=== PATIENT | female | born 1990 | race African-American/Black ===

== ENCOUNTER 2016-10-31 22:26 | Emergency (ER) | payer MEDICAID, MEDICARE ==
[2016-11-01 02:35] LABS: ABSOLUTE MONOCYTES (AUTO) 0.4 10^3/uL (0.1-1.4); ABSOLUTE NEUT (AUTO) 5.1 10^3/uL (1.7-8.2); BASOPHILS % (AUTO) 0.4 % (0-2); EOSINOPHILS % (AUTO) 0.7 % (0-6); HEMATOCRIT 36.9 % (36.0-47.0); HEMOGLOBIN 11.9 g/dL (12.0-15.5); HGB HCT DIFFERENCE -1.2; LYMPHOCYTES % (AUTO) 14.8 % (13-45); MEAN CORPUSCULAR HEMOGLOBIN 23.7 pg (27.0-33.4); MEAN CORPUSCULAR HGB CONC 32.4 g/dL (32.0-36.0); MEAN CORPUSCULAR VOLUME 73 fl (80-97); MONOCYTES % (AUTO) 5.6 % (3-13); RED BLOOD COUNT 5.03 10^6/uL (3.72-5.28); RED CELL DISTRIBUTION WIDTH 15.7 % (11.5-14.0); SEGMENTED NEUTROPHILS % (AUTO) 78.5 % (42-78); WHITE BLOOD COUNT 6.5 10^3/uL (4.0-10.5)
[2016-11-01 03:15] LABS: APPEARANCE,URINE CLOUDY; BILIRUBIN,URINE NEGATIVE (NEGATIVE); GLUCOSE, URINE NEGATIVE (NEGATIVE); KETONES,URINE NEGATIVE (NEGATIVE); LEUKOCYTE ESTERASE,URINE NEGATIVE (NEGATIVE); NITRITE,URINE NEGATIVE (NEGATIVE); PROTEIN,URINE 100 mg/dL (NEGATIVE); URINE SPECIFIC GRAVITY 1.029
[2016-11-01 03:20] LABS: ALANINE AMINOTRANSFERASE 123 U/L (9-52); ALBUMIN 4.2 g/dL (3.5-5.0); ALKALINE PHOSPHATASE 149 U/L (38-126); ANION GAP 9 (5-19); ASPARTATE AMINO TRANSFERASE 303 U/L (14-36); BILIRUBIN,DIRECT 1.1 mg/dL (0.0-0.4); BILIRUBIN,TOTAL 1.5 mg/dL (0.2-1.3); BLOOD UREA NITROGEN 10 mg/dL (7-20); CALCIUM 9.6 mg/dL (8.4-10.2); CARBON DIOXIDE 28 mmol/L (22-30); CHLORIDE 103 mmol/L (98-107); CREATININE RESULT 0.69 mg/dL (0.52-1.25); GLUCOSE 143 mg/dL (75-110); POTASSIUM 4.3 mmol/L (3.6-5.0); SODIUM 140.4 mmol/L (137-145); TOTAL PROTEIN 7.6 g/dL (6.3-8.2)
[2016-11-01] MEDS ORDERED: MORPHINE SULFATE 10 MG/ML INJ IV ONE ×3 (03:36→13:18)
[2016-11-01] MEDS ORDERED: ONDANSETRON HCL INJ/PF 4 MG/2 ML SDV IV ONE ×2 (05:09→13:18)
--- NOTE | 2016-11-01 06:50 | ER Document Report ---
ED GI/ - General Chief Complaint: Chest Pain Stated Complaint: CHEST PAIN Time Seen by Provider: 11/01/16 02:03 Notes: Patient is a 26-year-old female who presents emergency department complaining of epigastric pain. Patient states that she has been having issues with on and off back pain, right upper quadrant pain and epigastric pain since she had her daughter approximately 4 months ago. Patient states that she is 3 weeks postop from a laparoscopic cholecystectomy done by Dr. Stewart at [facility]. Patient states that she has been doing well up until the past couple of days where she has been having more severe back pain, epigastric pain. Patient admits to nausea without vomiting. States she has been taking Tylenol to help control her pain with minimal improvement. Past medical history significant for hypertension and diabetes Past surgical history significant for 2, cholecystectomy 3 weeks ago , history of appendectomy Social history: Denies any alcohol, tobacco or drug use. Home meds are control, labetalol, metformin, meclizine. Patient is originally from [facility] TRAVEL OUTSIDE OF THE [place] 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, Hx Cholecystectomy - 3 WEEKS DIRECT RESPONSE CONSULTANT - Immunizations Hx Diphtheria, Pertussis, Tetanus Vaccination: Yes Review of Systems - Review of Systems Constitutional: No symptoms reported Cardiovascular: No symptoms reported Respiratory: No symptoms reported Gastrointestinal: See HPI Genitourinary: No symptoms reported -: Yes All other systems reviewed and negative Physical Exam - Vital signs Vitals: Temp Pulse Resp BP Pulse Ox 98.6 F 87 16 143/122 H 100 10/31/16 22:34 10/31/16 22:34 10/31/16 22:34 10/31/16 22:34 10/31/16 22:34 - Notes Notes: PHYSICAL EXAM GENERAL: Alert, interacts well. LUNGS: Clear to auscultation bilaterally, no wheezes, rales, or rhonchi. No respiratory distress. HEART: Regular rate and rhythm. No murmurs, gallops, or rubs. ABDOMEN: Soft, nondistended, minimally tender in the epigastric area non- tympanic to percussion. No guarding, rebound, or rigidity.. Bowel sounds present in all 4 quadrants. EXTREMITIES: Moves all 4 extremities spontaneously. No edema, radial and dorsalis pedis pulses 2/4 bilaterally. No cyanosis. NEUROLOGICAL: Alert and oriented x4. Normal speech. PSYCH: Normal affect, normal mood. SKIN: Warm, dry, normal turgor. No rashes or lesions noted. Course - Re-evaluation Re-evalutation: 11/01/16 02:00 Patient is a 26-year-old female presents emergency department complaining of worsening epigastric and right upper quadrant pain. Patient states that she is 3 weeks postop from a laparoscopic cholecystectomy done at [facility] by Dr. Stewart. Patient states that she is due to follow-up on Saturday. Patient states that she has been trying to take Tylenol for her pain but it has not been working at all so she came in for evaluation. At this time patient is hemodynamically stable, no acute distress and afebrile. Labs do reveal concern for common bile duct stone. Right upper quadrant ultrasound shows evidence of dilated common bile duct at 8.5 mm without any evidence of stone. Lipase is normal at 143. Patient without any evidence of leukocytosis, anemia. She has been resting comfortably and pain well controlled with IV medications. 11/01/2016 7:30 Patient has been accepted to [facility] for transfer for ERCP to evaluate for retained common bile duct stone. Patient will be kept n.p.o. Patient agrees with plan. I signed out this case to day physician assistant child care teacher Nate Oliver - Vital Signs Vital signs: Temp Pulse Resp BP Pulse Ox 98.6 F 87 22 H 151/97 H 100 10/31/16 22:34 10/31/16 22:34 11/01/16 02:46 11/01/16 07:31 11/01/16 07:31 - Laboratory Result Diagrams: 11/01/16 02:27 11/01/16 02:27 Laboratory results interpreted by me: 11/01/16 11/01/16 11/01/16 00:00 02:27 02:27 Hgb 11.9 L MCV 73 L MCH 23.7 L RDW 15.7 H Seg Neutrophils % 78.5 H Glucose 143 H Total Bilirubin 1.5 H Direct Bilirubin 1.1 H AST 303 H ALT 123 H Alkaline Phosphatase 149 H Urine Protein 100 H Urine Urobilinogen 2.0 H Urine Ascorbic Acid 40 H - Diagnostic Test Radiology reviewed: Reports reviewed Discharge - Discharge Clinical Impression: Biliary obstruction Condition: Stable Disposition: [facility]
[2016-11-01 07:40] VITALS: BP 151/97
[2016-11-01] MEDS ORDERED: METOCLOPRAMIDE HCL INJ/PF 10 MG/2 ML SDV IV ONE (08:00)
--- NOTE | 2016-11-01 08:17 | EKG REPORT ---
SEVERITY:- NORMAL ECG - SINUS RHYTHM : Confirmed by: Eduin Holt MD 01-Nov-2016 08:17:13
[2016-11-01] MEDS: NORMAL SALINE 1000 ML 1,000 ML IV PRN ×2 (08:30→11:16)
--- NOTE | 2016-11-01 13:20 | ER Document Report ---
Doctor's Note Notes: 11/01/16 13:19 Transport will be here in about 10 minutes to take the patient to [place]. She is beginning to have some pain again. Her last pain medication was almost 6 hours ago. She will be given another dose of morphine and Zofran which seemed to work well earlier this morning. Otherwise, she is doing well with stable vital signs.
--- NOTE | 2016-11-05 12:10 | RADIOLOGY REPORT (SQ) ---
EXAM DESCRIPTION: ACUTE ABDOMEN SERIES COMPLETED DATE/TIME: 11/01/2016 3:03 am REASON FOR STUDY: epigastric discomfort COMPARISON: None. LIMITATIONS: None. FINDINGS: Moderate lung volumes. Mild enlargement of the cardiac silhouette. Intestinal gas patter n is within normal limits. No evidence of obstruction or perforation. Intact bony skeleton. IMPRESSION: Moderate lung volumes. No acute abdominal findings. TECHNICAL DOCUMENTATION: JOB ID: [id number] [employer]- All Rights Reserved
--- NOTE | 2016-11-05 12:35 | RADIOLOGY REPORT (SQ) ---
EXAM DESCRIPTION: U/S ABDOMEN LTD W/DOPPLER COMPLETED DATE/TIME: 11/01/2016 4:50 am REASON FOR STUDY: elevated liver enzymes with epigastric pain COMPARISON: None. TECHNIQUE: Dynamic and static grayscale images acquired of the pelvis via transabdominal approach an d recorded on PACS. Additional selected color Doppler and spectral images recorded. LIMITATIONS: None. FINDINGS: Transabdominal sonogram shows moderate hepatic steatosis, cholecystectomy, 0.9 cm diameter common duct, no intrahepatic ductal dilation, 2.4 cm hypoechoic avascular indeterminate lesion of th e 10.9 cm right kidney, limited visualization of the pancreatic tail, pancreas, aorta, and right kidn ey appear otherwise unremarkable. IMPRESSION: 1. No acute findings. Cholecystectomy. 2. Indeterminate 2.4 cm lesion associated with the right kidney may indicate a parapelvic cyst. Can not exclude neoplasm. Dynamic contrast CT of the kidneys and/or 3 month follow-up sonogram recommend ed. TECHNICAL DOCUMENTATION: JOB ID: [id number] [employer]- All Rights Reserved
== END 2016-11-01 13:30 | disposition short-term general hospital (02) ==
LOC: ER 22:26
DX: K83.1 Obstruction of bile duct (principal); I10 Essential (primary) hypertension; E11.9 Type 2 diabetes mellitus without complications
CPT/HCPCS: 93005; 96376; 99285; 96361; 96374; 96375; 36415; 83690; 85025; 81025; 80053; 81001; 74022; 76705; 93976; 93010; J2765; J2270; J2405; J7030